=== PATIENT | female | born 1935 | race Caucasian/White ===

== ENCOUNTER 2017-04-16 13:00 | Emergency (ER) | payer MEDICARE ==
--- NOTE | 2017-04-16 13:22 | ED Physician Documentation ---
PD HPI LOWER EXT INJURY - Stated complaint Stated Complaint: RT HIP PX - Chief complaint Chief Complaint: Ext Problem - History obtained from History obtained from: Patient - History of Present Illness PD HPI LOW EXT INJURY LOCATION: Right (This is a very healthy 82-year-old woman who was twisting while making the bed today and felt a sudden pain between the hip and the knee and has been unable to walk since. No other injuries. She does have a history of osteoporosis.) Review of Systems Ten Systems: 10 systems reviewed and negative Constitutional: reports: Reviewed and negative Nose: reports: Reviewed and negative Throat: reports: Reviewed and negative Cardiac: reports: Reviewed and negative Respiratory: reports: Reviewed and negative PD PAST MEDICAL HISTORY - Past Medical History Past Medical History: Yes Cardiovascular: Hypertension, High cholesterol Musculoskeletal: Osteoarthritis, Other - Present Medications Home Medications: Ambulatory Orders Medication Instructions Recorded Confirmed Alendronate [Fosamax] 70 mg PO Q7D 04/16/17 04/16/17 Diclofenac Sodium [Voltaren] 0 gm TP 04/16/17 Simvastatin 20 mg PO DAILY 04/16/17 04/16/17 hydroCHLOROthiazide [Hydrodiuril] 12.5 mg PO DAILY 04/16/17 04/16/17 - Allergies Allergies/Adverse Reactions: Allergies Allergy/AdvReac Type Severity Reaction Status Date / Time Penicillins Allergy Unknown Verified 04/16/17 13:05 - Social History Does the pt smoke?: No Smoking Status: Never smoker - Family History Family history: reports: Non contributory PD ED PE NORMAL - Vitals Vital signs reviewed: Yes - General General: Alert and oriented X 3, No acute distress - HEENT HEENT: PERRL, EOMI - Neck Neck: Supple, no meningeal sign, No bony TTP - Cardiac Cardiac: RRR, No murmur - Respiratory Respiratory: No respiratory distress, Clear bilaterally - Abdomen Abdomen: Normal bowel sounds, Soft, Non tender - Back Back: No CVA TTP, No spinal TTP - Extremities Extremities: Other (Tender over the right greater trochanter and pain with forced external rotation of the right hip, but relatively painless mild int/ext rotation. NVI in the foot. No shortening.) - Neuro Neuro: Alert and oriented X 3, Normal speech - Psych Psych: Normal mood, Normal affect Results - Vitals Vitals: Vital Signs - 24 hr 04/16/17 04/16/17 04/16/17 13:02 16:21 17:15 Temperature 36.5 C Heart Rate 82 77 79 Respiratory 18 18 18 Rate Blood Pressure 161/78 H 132/76 H 156/77 H O2 Saturation 100 98 96 04/16/17 18:29 Temperature Heart Rate 80 Respiratory 18 Rate Blood Pressure 127/65 O2 Saturation 97 Oxygen O2 Source Room air - Rads (name of study) R Hip XR Radiology: EMP read contemporaneously (Degenerative chgs Hip and back, no acute abnormality.) MRI R Hip Radiology: EMP read contemporaneously (No fracture, some hamstring tendinopathy and right ischio femoral impingement with quadratus femoris muscle edema) PD MEDICAL DECISION MAKING - ED course ED course: She presents with relatively atraumatic right hip pain, concern for occult fracture given inability to walk here despite negative x-rays so proceeded to MRI with results as shown. Was able to ambulate with a walker after that. declined pain medicine Departure - Departure Disposition: 01 Home, Self Care Clinical Impression: Injury of right hip Qualifiers: Encounter type: initial encounter Qualified Code(s): S79.911A - Unspecified injury of right hip, initial encounter Condition: Good Record reviewed to determine appropriate education?: Yes Instructions: ED Sprain Hip Comments: Call your doctor to arrange a follow up appointment. Make the next available appointment. In the interim return anytime if worse or if new symptoms develop. Discharge Date/Time: 04/16/17 18:55
--- NOTE | 2017-04-16 14:43 | XRAY Preliminary Report ---
Exam: XR Hip w/Pelvis 2-3V RT IMPRESSION: 1. No acute bony abnormality. 2. Mild degenerative changes both hips. 3. Moderate to marked degenerative disk disease L4-L5 and L5-S1. [facility] SITE ID: [id number]
--- NOTE | 2017-04-16 14:56 | XRAY Report ---
EXAM: RIGHT HIP AND PELVIS RADIOGRAPHY EXAM DATE: 04/16/2017 02:33 PM. HISTORY: Right hip pain after fall. COMPARISONS: None. TECHNIQUE: 1 view of the pelvis and 1 view of the hip. FINDINGS: Bones: Normal. No fracture or bone lesion. Joints: The bilateral hip, pubis symphysis, and sacroiliac joints are preserved. Moderate to marked d egenerative changes L4-L5 and L5-S1 disks. Mild degenerative changes both hips consisting of joint sp nissa narrowing, subcortical sclerosis and cyst formation both femoral heads. Normal sacroiliac joints. Soft Tissues: Normal. No soft tissue swelling. IMPRESSION: 1. No acute bony abnormality. 2. Mild degenerative changes both hips. 3. Moderate to marked degenerative disk disease L4-L5 and L5-S1. [facility] Referring Provider Line: [phone] SITE ID: [id number]
--- NOTE | 2017-04-16 17:49 | MRI Preliminary Report ---
Exam: MRI Hip RT W/O IMPRESSION: 1. Mild bilateral hip degenerative joint disease. No fracture or marrow edema. 2. Mild right hamstring tendinopathy. 3. Probable right ischiofemoral impingement with mild quadratus femoris muscle edema. [facility]CULOSKELETAL [facility]IOLOG[facility] SECTION SITE ID: [id number]
--- NOTE | 2017-04-16 17:51 | MRI Report ---
EXAM: RIGHT HIP MRI WITHOUT CONTRAST EXAM DATE: 04/16/2017 04:48 PM. CLINICAL HISTORY: Persistent hip pain, cannot walk. COMPARISON: X-ray 04/16/2017. TECHNIQUE: Multiplanar, multisequence T1-weighted and fluid-sensitive, small [id number] sequences of the hip and large [id number] sequences of the pelvis without contrast. Other: None. FINDINGS: Bones: No fractures or subluxations. No marrow edema or bone lesions. Right Hip: Alignment normal. Mild degenerative joint disease with small osteophytes and cartilage thi nning. Narrowing of the right ischiofemoral space with mild quadratus femoris muscle edema. Other Joints: Mild left-sided degenerative joint disease. Musculature: No edema or fatty atrophy. The gluteus medius and minimus tendons are normal. Mild T2 h yperintensity proximal right hamstring, but no significant tear or retraction. The ischiofemoral spac e is normal. Pelvic Cavity: The visualized viscera are unremarkable. No lymphadenopathy. No free fluid in the pelv is. Other: The visualized sciatic nerves are unremarkable. No bursitis. The subcutaneous tissues are unre markable. IMPRESSION: 1. Mild bilateral hip degenerative joint disease. No fracture or marrow edema. 2. Mild right hamstring tendinopathy. 3. Probable right ischiofemoral impingement with mild quadratus femoris muscle edema. [facility]CULOSKELET[facility] SECTION Referring Provider Line: [phone] SITE ID: [id number]
[2017-04-16 18:29] VITALS: BP 127/65
== END 2017-04-16 18:55 | disposition home or self-care (01) ==
LOC: ED 13:00
DX: S79.911A Unspecified injury of right hip, initial encounter (principal); X50.0XXA Overexertion from strenuous movement or load, initial encounter; Y92.013 Bedroom of single-family (private) house as the place of occurrence of the external cause; I10 Essential (primary) hypertension; E78.00 Pure hypercholesterolemia, unspecified; M19.90 Unspecified osteoarthritis, unspecified site
CPT/HCPCS: 99283